=== PATIENT | female | born 1955 | race Caucasian/White ===

== ENCOUNTER 2017-09-19 16:27 | Emergency (ER) | payer OTHER ==
[~2017-09-19] VITALS: Ht 157.5 cm; Wt 40.0 kg
[~2017-09-19 16:27] MED LIST: XANA0.5T2 PO
[2017-09-19 16:52] VITALS: BP 131/60; PULSE 73; RESP 18; TEMP 97.9; O2SAT 99
[2017-09-19 18:01] LABS: BACTERIA, URINE OCC /hpf; BILIRUBIN, URINE NEG (NEG); BLOOD, URINE SMALL (NEG); GLUCOSE,URINE NEG (NEG); KETONE, URINE NEG (NEG); MUCUS URINE FEW /lpf (OCC); NITRITE,URINE NEG (NEG); SQUAMOUS EPITHELIAL CELL URINE 1 /hpf (0-5); URINE COLOR Straw (YELLW/STRAW); URINE LEUKOCYTE ESTERASE MOD (NEG)
[2017-09-19] MEDS ORDERED: ACYC200C66 PO (19:41)
[2017-09-19] MEDS ORDERED: CLON0.5T PO (19:41)
--- NOTE | 2017-09-19 19:53 | PD ---
HPI Chief Complaint: Psychiatric Symptoms Time Seen by Provider: 19:34 Travel History International Travel<30 days: No Contact w/Intl Traveler<30days: No Traveled to known affect area: No History of Present Illness HPI 62-year-old white female presents emergency department accompanied by her on a voluntary basis for psychological evaluation. the patient states that she has been feeling depressed for some time now. She has been having increasing stressors at home with taking care of family members. This past year she was treated a second time for breast cancer and had bilateral mastectomies. She had gone to her doctor's office this past week and she was given a prescription for Prozac but she did not fill it because it stated that if you feel depressed and have suicidal thoughts not to take it because it can exacerbate her symptoms. She also states that she had gotten blood work back which showed elevated tumor marker but she does not know what her baseline was. She had mentioned to her that if she were to herself she might consider hanging herself. She does not have any active plan on self-harm. No homicidal ideation. She states that she is merely overwhelmed and depressed. She was treated for urinary tract infection last week but feels that it has not resolved. She still has increased urinary frequency, and urgency. She has noticed scant amount of blood. She does have general malaise and weakness. She has a lack of drive and energy. She denies any fever or chills. No chest pain or shortness of breath. No nausea vomiting. No abdominal pain. Symptoms are moderate. Exacerbated by taking care of family members. No alleviating factors. PFSH Past Medical History Narrative Medical Breast cancer, depression, TIA, hypercholesterolemia, tachycardia, anxiety Depression: Yes Heart Rhythm Problems: Yes Cancer: Yes (LEFT BREAST , HAD LUMPECTOMY 2008) Cardiovascular Problems: Yes (Tachycardia) Chemotherapy: Yes (FOR BREAST CANCER) Cerebrovascular Accident: Yes (x 2 TIA) Diabetes: No Diminished Hearing: No Respiratory: Yes (Bhronchitis) Immunizations Current: Yes Tetanus Vaccination: < 5 Years ?: Not Menopausal: Yes Past Surgical History Narrative Surgical Bilateral mastectomy, 2 Section: Yes (X 2) Social History Alcohol Use: No Tobacco Use: Yes (1 PPD) Substance Use: No Allergies-Medications (Allergen,Severity, Reaction): Coded Allergies: azithromycin (Unverified Allergy, Severe, 11/13/16) cefaclor (Unverified Allergy, Severe, 11/13/16) diatrizoate meglumine (Unverified Allergy, Severe, 11/13/16) erythromycin base (Unverified Allergy, Severe, 11/13/16) gadobenic acid (Unverified Allergy, Severe, 11/13/16) gadodiamide (Unverified Allergy, Severe, 11/13/16) gadoteridol (Unverified Allergy, Severe, 11/13/16) iodine (Unverified Allergy, Severe, 11/13/16) iodixanol (Unverified Allergy, Severe, 11/13/16) iohexol (Unverified Allergy, Severe, 11/13/16) penicillin G (Unverified Allergy, Severe, 11/13/16) potassium iodide (Unverified Allergy, Severe, 11/13/16) povidone-iodine (Unverified Allergy, Severe, 11/13/16) sodium iodide (Unverified Allergy, Severe, 11/13/16) sodium iodide (Unverified Allergy, Severe, 11/13/16) Uncoded Allergies: WHITE COLORED XANAX (Allergy, Severe, 01/27/14) Reported Meds & Prescriptions Reported Meds & Active Scripts Active Macrobid (Nitrofurantoin Monoh/Nitrofur Macro) 100 Mg Cap 100 Mg PO BID 7 Days Reported Acyclovir 200 Mg Cap 200 Mg PO 5 TIMES A DAY Clonazepam 0.5 Mg Tab 0.5 Mg PO BID Review of Systems Except as stated in HPI: all other systems reviewed are Neg Genitourinary: Positive: Urgency, Frequency, Hematuria, No: Dysuria Psychiatric: Positive: Depression, Suicidal Ideations, Mood Disorder, No: Anxiety, Disorder of Thought, Substance Abuse, Homicidal Ideation Physical Exam Narrative GENERAL: Well-developed, well-nourished in no apparent distress. Nontoxic appearing. HEAD: Normocephalic, atraumatic. EYES: Pupils equal round and reactive. Extraocular motions intact. No scleral icterus. No injection or drainage. ENT: Nose clear. Throat without erythema, tonsillar hypertrophy or exudate. Uvula midline. Airway patent. NECK: Trachea midline. Supple, nontender, moves head freely. No central bony tenderness or spasm. CARDIOVASCULAR: Regular rate and rhythm without murmurs, gallops, or rubs. RESPIRATORY: Clear to auscultation. Breath sounds equal bilaterally. No wheezes , rales, or rhonchi. GASTROINTESTINAL: Abdomen soft, non-tender, nondistended. No hepato-splenomegaly , or palpable masses. No guarding. EXTREMITIES: No clubbing, cyanosis, or edema. No joint tenderness. BACK: Nontender without deformity. No flank tenderness. NEUROLOGICAL: Awake, alert and oriented x 3 .Cranial nerves grossly intact. Motor and sensory grossly within normal limits. Normal speech. Psych: No delusions. No hallucinations. Data Data Last Documented VS Vital Signs Date Time Temp Pulse Resp B/P (MAP) Pulse Ox O2 Delivery O2 Flow Rate FiO2 09/19/17 16:52 97.9 73 18 131/60 (83) 99 Orders Orders Complete Blood Count With Diff (09/19/17 17:01) Comprehensive Metabolic Panel (09/19/17 17:01) Urinalysis - C+S If Indicated (09/19/17 17:01) Drug Screen, Random Urine (09/19/17 17:01) Urine Culture (09/19/17 17:00) Psych Screen (09/19/17 20:42) Nitrofurantoin Monohyd Macrocr (Macrobid (09/19/17 20:45) Labs Laboratory Tests Test 09/19/17 17:00 09/19/17 20:00 Urine Color Straw Urine Turbidity CLEAR Urine pH 6.0 Urine Specific [place] 1.004 Urine Protein NEG mg/dL Urine Glucose (UA) NEG mg/dL Urine Ketones NEG mg/dL Urine Occult Blood SMALL Urine Nitrite NEG Urine Bilirubin NEG Urine Urobilinogen LESS THAN 2 mg/dL Urine Leukocyte Esterase MOD Urine RBC 1 /hpf Urine WBC 21 /hpf Urine Squamous Epithelial Cells 1 /hpf Urine Bacteria OCC /hpf Urine Mucus FEW /lpf Microscopic Urinalysis Comment CULTURE INDICATED Urine Opiates Screen NEG Urine Barbiturates Screen NEG Urine Amphetamines Screen NEG Urine Benzodiazepines Screen NEG Urine Cocaine Screen NEG Urine Cannabinoids Screen NEG White Blood Count 9.7 TH/MM3 Red Blood Count 4.52 MIL/MM3 Hemoglobin 14.3 GM/DL Hematocrit 42.7 % Mean Corpuscular Volume 94.5 FL Mean Corpuscular Hemoglobin 31.6 PG Mean Corpuscular Hemoglobin Concent 33.4 % Red Cell Distribution Width 13.8 % Platelet Count 335 TH/MM3 Mean Platelet Volume 8.3 FL Neutrophils (%) (Auto) 52.4 % Lymphocytes (%) (Auto) 39.3 % Monocytes (%) (Auto) 5.4 % Eosinophils (%) (Auto) 1.7 % Basophils (%) (Auto) 1.2 % Neutrophils # (Auto) 5.1 TH/MM3 Lymphocytes # (Auto) 3.8 TH/MM3 Monocytes # (Auto) 0.5 TH/MM3 Eosinophils # (Auto) 0.2 TH/MM3 Basophils # (Auto) 0.1 TH/MM3 CBC Comment DIFF FINAL Differential Comment Blood Urea Nitrogen 13 MG/DL Creatinine 0.85 MG/DL Random Glucose 80 MG/DL Total Protein 7.6 GM/DL Albumin 3.8 GM/DL Calcium Level 9.2 MG/DL Alkaline Phosphatase 105 U/L Aspartate Amino Transf (AST/SGOT) 24 U/L Alanine Aminotransferase (ALT/SGPT) 24 U/L Total Bilirubin 0.3 MG/DL Sodium Level 139 MEQ/L Potassium Level 4.2 MEQ/L Chloride Level 107 MEQ/L Carbon Dioxide Level 25.3 MEQ/L Anion Gap 7 MEQ/L Estimat Glomerular Filtration Rate 68 ML/MIN MDM Medical Decision Making Medical Screen Exam Complete: Yes Emergency Medical Condition: Yes Medical Record Reviewed: Yes Interpretation(s) Laboratory Tests Test 09/19/17 17:00 09/19/17 20:00 Urine Color Straw Urine Turbidity CLEAR Urine pH 6.0 Urine Specific [place] 1.004 Urine Protein NEG mg/dL Urine Glucose (UA) NEG mg/dL Urine Ketones NEG mg/dL Urine Occult Blood SMALL Urine Nitrite NEG Urine Bilirubin NEG Urine Urobilinogen LESS THAN 2 mg/dL Urine Leukocyte Esterase MOD Urine RBC 1 /hpf Urine WBC 21 /hpf Urine Squamous Epithelial Cells 1 /hpf Urine Bacteria OCC /hpf Urine Mucus FEW /lpf Microscopic Urinalysis Comment CULTURE INDICATED Urine Opiates Screen NEG Urine Barbiturates Screen NEG Urine Amphetamines Screen NEG Urine Benzodiazepines Screen NEG Urine Cocaine Screen NEG Urine Cannabinoids Screen NEG White Blood Count 9.7 TH/MM3 Red Blood Count 4.52 MIL/MM3 Hemoglobin 14.3 GM/DL Hematocrit 42.7 % Mean Corpuscular Volume 94.5 FL Mean Corpuscular Hemoglobin 31.6 PG Mean Corpuscular Hemoglobin Concent 33.4 % Red Cell Distribution Width 13.8 % Platelet Count 335 TH/MM3 Mean Platelet Volume 8.3 FL Neutrophils (%) (Auto) 52.4 % Lymphocytes (%) (Auto) 39.3 % Monocytes (%) (Auto) 5.4 % Eosinophils (%) (Auto) 1.7 % Basophils (%) (Auto) 1.2 % Neutrophils # (Auto) 5.1 TH/MM3 Lymphocytes # (Auto) 3.8 TH/MM3 Monocytes # (Auto) 0.5 TH/MM3 Eosinophils # (Auto) 0.2 TH/MM3 Basophils # (Auto) 0.1 TH/MM3 CBC Comment DIFF FINAL Differential Comment Blood Urea Nitrogen 13 MG/DL Creatinine 0.85 MG/DL Random Glucose 80 MG/DL Total Protein 7.6 GM/DL Albumin 3.8 GM/DL Calcium Level 9.2 MG/DL Alkaline Phosphatase 105 U/L Aspartate Amino Transf (AST/SGOT) 24 U/L Alanine Aminotransferase (ALT/SGPT) 24 U/L Total Bilirubin 0.3 MG/DL Sodium Level 139 MEQ/L Potassium Level 4.2 MEQ/L Chloride Level 107 MEQ/L Carbon Dioxide Level 25.3 MEQ/L Anion Gap 7 MEQ/L Estimat Glomerular Filtration Rate 68 ML/MIN Laboratory Tests Test 09/19/17 17:00 09/19/17 20:00 Urine Color Straw Urine Turbidity CLEAR Urine pH 6.0 Urine Specific [place] 1.004 Urine Protein NEG mg/dL Urine Glucose (UA) NEG mg/dL Urine Ketones NEG mg/dL Urine Occult Blood SMALL Urine Nitrite NEG Urine Bilirubin NEG Urine Urobilinogen LESS THAN 2 mg/dL Urine Leukocyte Esterase MOD Urine RBC 1 /hpf Urine WBC 21 /hpf Urine Squamous Epithelial Cells 1 /hpf Urine Bacteria OCC /hpf Urine Mucus FEW /lpf Microscopic Urinalysis Comment CULTURE INDICATED Urine Opiates Screen NEG Urine Barbiturates Screen NEG Urine Amphetamines Screen NEG Urine Benzodiazepines Screen NEG Urine Cocaine Screen NEG Urine Cannabinoids Screen NEG White Blood Count 9.7 TH/MM3 Red Blood Count 4.52 MIL/MM3 Hemoglobin 14.3 GM/DL Hematocrit 42.7 % Mean Corpuscular Volume 94.5 FL Mean Corpuscular Hemoglobin 31.6 PG Mean Corpuscular Hemoglobin Concent 33.4 % Red Cell Distribution Width 13.8 % Platelet Count 335 TH/MM3 Mean Platelet Volume 8.3 FL Neutrophils (%) (Auto) 52.4 % Lymphocytes (%) (Auto) 39.3 % Monocytes (%) (Auto) 5.4 % Eosinophils (%) (Auto) 1.7 % Basophils (%) (Auto) 1.2 % Neutrophils # (Auto) 5.1 TH/MM3 Lymphocytes # (Auto) 3.8 TH/MM3 Monocytes # (Auto) 0.5 TH/MM3 Eosinophils # (Auto) 0.2 TH/MM3 Basophils # (Auto) 0.1 TH/MM3 CBC Comment DIFF FINAL Differential Comment Blood Urea Nitrogen 13 MG/DL Creatinine 0.85 MG/DL Random Glucose 80 MG/DL Total Protein 7.6 GM/DL Albumin 3.8 GM/DL Calcium Level 9.2 MG/DL Alkaline Phosphatase 105 U/L Aspartate Amino Transf (AST/SGOT) 24 U/L Alanine Aminotransferase (ALT/SGPT) 24 U/L Total Bilirubin 0.3 MG/DL Sodium Level 139 MEQ/L Potassium Level 4.2 MEQ/L Chloride Level 107 MEQ/L Carbon Dioxide Level 25.3 MEQ/L Anion Gap 7 MEQ/L Estimat Glomerular Filtration Rate 68 ML/MIN Differential Diagnosis MDM: High Differential diagnoses: Schizophrenia, schizoaffective disorder, bipolar, anxiety, depression, adjustment reaction, mood disorder NOS, ODD, depressive disorder NOS, dementia, dementia with agitation, psychosis NOS, substance induced mood disorder, DMDD, Asperger syndrome, infection,electrolyte abnormality, malingering. Narrative Course Mental health screening discussed with the patient. Psychiatric screen ordered. The patient has been medically cleared. Patient given Macrobid 100 mg p.o. The patient has been evaluated by the psych screener. The patient states that she is not actively suicidal. She had mentioned to her that she was depressed and has had suicidal thoughts but has truly no plan on hurting herself. The has expressed that he feels comfortable taking her home. He 2 does not feel that she will truly order to help. He would like to be advised by the patient if she does feel increasingly depressed. Patient's agreed. The psych screener feels comfortable letting her go home. She does not feel that she is a true catheter herself or others. The patient will be discharged and advised to follow-up as soon as possible with a psychiatrist or return to the ER if symptoms worsen. Patient's is also advised that he may call 911 if she is not cooperative. This is depression with suicidal ideation, UTI Diagnosis Primary Impression: Depression with suicidal ideation Additional Impression: UTI Patient Instructions: General Instructions Additional Instructions: Rest. Medications as directed. Follow-up with the recommendations of the psych screener. Notify her if you are feeling increasingly depressed and having thoughts of self-harm. Follow-up with a psychiatrist soon as possible. If you have any worsening symptoms follow up with the closest emergency room. Med/Other Pt SpecificInfo: Prescription(s) given Scripts Nitrofurantoin Monohydrate Macrocrystals (Macrobid) 100 Mg Cap 100 MG PO BID for Infection for 7 Days, #14 CAP 0 Refills Prov: Brad Darden MD 09/19/17 Disposition: 01 DISCHARGE HOME Condition: Stable Haseeb Brown Sep 19, 2017 19:53
[2017-09-19 20:35] LABS: AUTOMATED NEUTROPHIL # 5.1 TH/MM3 (1.8-7.7); BASOPHIL # 0.1 TH/MM3 (0-0.2); BASOPHIL % 1.2 % (0.0-2.0); EOSINOPHIL # 0.2 TH/MM3 (0-0.4); EOSINOPHIL % 1.7 % (0.0-4.0); HEMATOCRIT 42.7 % (35.0-46.0); HEMOGLOBIN 14.3 GM/DL (11.6-15.3); LYMPH % 39.3 % (9.0-44.0); LYMPHOCYTE # 3.8 TH/MM3 (1.0-4.8); MEAN CELL VOLUME 94.5 FL (80.0-100.0); MEAN CORPUSCULAR HEMOGLOBIN 31.6 PG (27.0-34.0); MEAN CORPUSCULAR HGB CONC 33.4 % (32.0-36.0); MEAN PLATELET VOLUME 8.3 FL (7.0-11.0); MONO % 5.4 % (0.0-8.0); MONOCYTE # 0.5 TH/MM3 (0-0.9); NEUT % 52.4 % (16.0-70.0); PLATELET COUNT 335 TH/MM3 (150-450); RED BLOOD COUNT 4.52 MIL/MM3 (4.00-5.30); RED CELL DISTRIBUTION WIDTH 13.8 % (11.6-17.2); WHITE BLOOD COUNT 9.7 TH/MM3 (4.0-11.0)
[2017-09-19] MEDS ORDERED: MACR100C2 PO (20:44)
[2017-09-19] MEDS ORDERED: NITROFURANTOIN MONOHYD MACROCR 100 MG CAP PO ONE (20:45)
[2017-09-19 21:03] LABS: ALBUMIN 3.8 GM/DL (3.4-5.0); AST (GOT) 24 U/L (15-37); BICARBONATE 25.3 MEQ/L (21.0-32.0); BLOOD UREA NITROGEN 13 MG/DL (7-18); CALCIUM 9.2 MG/DL (8.5-10.1); CHLORIDE 107 MEQ/L (98-107); CREATININE 0.85 MG/DL (0.50-1.00); GLOMERULAR FILTRATION RATE 68 ML/MIN (>89); GLUCOSE,RANDOM 80 MG/DL (74-106); SODIUM (NA) 139 MEQ/L (136-145)
[2017-09-19 21:08] LABS: ALKALINE PHOSPHATASE 105 U/L (45-117); ALT (GPT) 24 U/L (10-53); TOTAL BILIRUBIN ADULT 0.3 MG/DL (0.2-1.0); TOTAL PROTEIN 7.6 GM/DL (6.4-8.2)
== END 2017-09-19 22:50 | disposition home or self-care (01) ==
LOC: NEPD 16:27
DX: R45.851 Suicidal ideations (principal); N39.0 Urinary tract infection, site not specified; R53.81 Other malaise; R53.1 Weakness; F32.9 Major depressive disorder, single episode, unspecified; F17.200 Nicotine dependence, unspecified, uncomplicated; Z79.899 Other long term (current) drug therapy; Z85.3 Personal history of malignant neoplasm of breast; Z86.73 Personal history of transient ischemic attack (TIA), and cerebral infarction without residual deficits; Z88.0 Allergy status to penicillin; Z88.8 Allergy status to other drugs, medicaments and biological substances
CPT/HCPCS: 80053; 80307; 81001; 85025; 87086; 99283